=== PATIENT | male | born 1970 | race Hispanic/Latino ===

== ENCOUNTER 2020-10-12 16:20 | Emergency (ER) | payer BC ==
[~2020-10-12] VITALS: Ht 170.2 cm; Wt 77.8 kg
[2020-10-12] MEDS ORDERED: HYDROCODON-ACE1 EA12 PO (17:52)
== END 2020-10-12 18:02 | disposition home or self-care (01) ==
LOC: FSED 16:37
DX: S40.012A Contusion of left shoulder, initial encounter (principal); S22.42XA Multiple fractures of ribs, left side, initial encounter for closed fracture; R03.0 Elevated blood-pressure reading, without diagnosis of hypertension; W10.8XXA Fall (on) (from) other stairs and steps, initial encounter; Y92.098 Other place in other non-institutional residence as the place of occurrence of the external cause; S63.613A Unspecified sprain of left middle finger, initial encounter
CPT/HCPCS: 71101; 99283